=== PATIENT | male | born 1975 | race Caucasian/White ===

== ENCOUNTER → 2017-02-26 | Outpatient (CLI) | payer OTHER ==
[~2017-02-26] MED LIST: AMOX TR-K CLV1 EAC3 PO; ASPIR 8181 MG PO; ASPIRIN CHEWABL81 MG PO; CEFTRIAXONE2 GM INJ; GLUCOTROL5 MG PO; HUMALOG100 UNIT/1 SQ; IMDUR ER TAB 3030 MG PO; INVANZ 1 GM VIAL1 GM IM; ISORDIL TAB 3030 MG PO; LANTUS100 UNIT/1 SQ; LEVAQUIN750 MG PO; LISINOPRIL20 MG PO; LOPRESSOR50 MG PO; NEURONTIN 300300 MG PO; NITROSTAT0.4 MG SL; NOVOLOG 10100 UNITS/ SQ; PLAVIX 75 MG TA75 MG PO; PROTONIX 20 MG20 MG PO; PROTONIX40 MG PO; SIMVASTATIN40 MG PO; TYLENOL 325MG325 MG PO; VITAMIN C 500500 MG PO; VITAMIN D250000 UNIT PO; ZESTRIL20 MG PO; ZOCOR40 MG PO; [UNRECOGNIZED DRUG - CODE] IM
== END ==
LOC: KOH-I 02-17 08:00
DX: M86.171 Other acute osteomyelitis, right ankle and foot (principal); L03.115 Cellulitis of right lower limb; M79.89 Other specified soft tissue disorders
CPT/HCPCS: 73718